=== PATIENT | female | born 1970 | race Caucasian/White ===

== ENCOUNTER → 2017-01-27 | Outpatient (CLI) | payer BC ==
--- NOTE | 2017-01-27 16:57 | CR ---
EXAMINATION: Right knee HISTORY: Pain COMPARISON: 03/18/2016 TECHNIQUE: 4 views FINDINGS/IMPRESSION: There is stable medial hemiarthroplasty hardware noted bilaterally. There is a small joint effusion without an obvious fracture or acute osseous abnormality. Osteophyte formation is noted within the lateral and patellofemoral compartments. Bone mineralization is otherwise normal .
== END | disposition home or self-care (01) ==
LOC: MW.CHORTHO 14:07
PROVIDERS: ATTEND Physician Assistant
DX: M25.561 Pain in right knee (principal); M25.562 Pain in left knee; M25.461 Effusion, right knee; M25.761 Osteophyte, right knee; Z98.890 Other specified postprocedural states
CPT/HCPCS: 73564-26-RT; 73564-RT

== ENCOUNTER → 2017-02-03 | Outpatient (CLI) | payer BC | END | disposition home or self-care (01) | LOC: MW.CHORTHO 12:41 | PROVIDERS: ATTEND Physician Assistant | DX: M25.561 Pain in right knee (principal); Z96.653 Presence of artificial knee joint, bilateral | CPT/HCPCS: 36415; 85025; 85652; 86140 ==